=== PATIENT | female | born 1950 | race Asian ===

== ENCOUNTER 2018-03-19 09:27 | Inpatient (IN) | payer MEDICARE ==
[~2018-03-19] VITALS: Ht 170.2 cm; Wt 72.6 kg
[2018-03-19] VITALS (11 sets, daily range): BP systolic 111–157; BP diastolic 52–85
[~2018-03-19 09:27] MED LIST: ASPIR 8181 MG ORAL; ATORVASTATIN CA10 MG ORAL; GABAPENTIN600 MG ORAL
[2018-03-19] MEDS ORDERED: fentaNYL 100 mcg/2 mL IV ONE (10:40)
[2018-03-19] MEDS ORDERED: Midazolam 2mg/2ml Inj ONE (10:40)
[2018-03-19] MEDS ORDERED: Sodium Chloride 10ml vial INJ ONE (10:41)
[2018-03-19] MEDS ORDERED: Propofol 200mg/20ml IV ONE ×4 (10:41→15:26)
[2018-03-19] MEDS ORDERED: Lidocaine 1% MPF 10mg/ml 5ml ONE (10:41)
[2018-03-19] MEDS ORDERED: Succinylcholine 20mg/ml 10ml vial ONE (10:48)
[2018-03-19] MEDS ORDERED: EPINEPHrine 1mg/1ml Amp ONE (10:52)
[2018-03-19] MEDS ORDERED: Thrombin 5000 units TOPIC ONE (10:52)
[2018-03-19] MEDS ORDERED: Bupivacaine 0.5% Inj 30 ml vial INJ ONE (10:53)
[2018-03-19] MEDS ORDERED: LORazepam Inj 2mg/ml 1ml IV PRN (11:00)
[2018-03-19] MEDS ORDERED: LR 1000ml 1,000 ML IVLG SCH (11:00)
[2018-03-19] MEDS ORDERED: DiphenhydrAMINE 50mg/ml Inj IVP PRN (11:00)
[2018-03-19] MEDS ORDERED: Meperidine 50mg/ml Inj(FOR RIGORS ONLY) IVP PRN (11:00)
[2018-03-19] MEDS ORDERED: Bacitracin 50000 Units Vial ONE (11:07)
--- NOTE | 2018-03-19 11:09 | Anethesia Preoperative Eval ---
Anesthesia Pre-op PMH/ROS General Date of Evaluation: Mar 19, 2018 Time of Evaluation: 10:40 Anesthesiologist: Gen ASA Score: ASA 2 Mallampati Score Class I : Soft palate, uvula, fauces, pillars visible Class II: Soft palate, uvula, fauces visible Class III: Soft palate, base of uvula visible Class IV: Only hard plate visible Mallampati Classification: Class II Surgeon: Radha Diagnosis: Cervical disc herniation Surgical Procedure: ACDF C4-5, C5-6 Family History: no anesthesia problems Allergies: Coded Allergies: No Known Allergies (Unverified , 03/18/18) Medications: see eMAR Past Medical History Cardiovascular: Denies: HTN, CAD, UT, valve dz, arrhythmia, other Pulmonary: Denies: asthma, COPD, TRESSA, other Gastrointestinal/Genitourinary: Denies: GERD, CRI, ESRD, other Neurologic/Psychiatric: Denies: dementia, CVA, depression/anxiety, TIA, other Endocrine: Denies: DM, hypothyroidism, steroids, other HEENT: Denies: cataract (L), cataract (R), glaucoma, LOWER ELWHA (L), LOWER ELWHA (R), other Hematology/Immune: Denies: anemia, DVT, bleeding disorder, other Musculoskeletal/Integumentary: Denies: OA, RA, DJD, DDD, edema, other PMH Narrative: Hypercholesterolemia PSxH Narrative: Posterior cervical fusion Anesthesia Pre-op Phys. Exam Physician Exam Last Vital Signs Date Time Temp Pulse Resp B/P (MAP) Pulse Ox O2 Delivery O2 Flow Rate FiO2 03/19/18 10:37 97.1 71 20 157/82 99 Room Air 97.1 Constitutional: NAD Neurologic: CN 2-12 intact Cardiovascular: RRR, no M/R/G Respiratory: CTA Gastrointestinal: S/NT/ND Airway Exam Mallampati Score: Class II MO: full ROM: full Teeth: other - Implants Anesthesia Pre-op A/P Labs WNL Studies Pre-op Studies: EKG - NSR Risk Assessment & Plan Assessment: Healthy female for ACDF Plan: GETA, [place] Status Change Before Surgery: No Pre-Antibiotics Drug: Ancef Given Within 1 Hr of Incision: Yes Jonny Blevins MD Mar 19, 2018 11:09
--- NOTE | 2018-03-19 11:09 | Immediate Post-Op Evaluation ---
Immediate Post-Op Evalulation Immediate Post-Op Evalulation Procedure: ACDF C4-5, C5-6 Date of Evaluation: Mar 19, 2018 Time of Evaluation: 16:35 IV Fluids: 1900 Estimated Blood Loss: 75 Urinary Output: 75 Blood Pressure Systolic: 130 Blood Pressure Diastolic: 70 Pulse Rate: 93 O2 Sat by Pulse Oximetry: 100 Temperature (Fahrenheit): 97.2 Pain Score (1-10): 0 Nausea: No Vomiting: No Complications No complication Patient Status: reacts, patent, extubated, none Hydration Status: adequate Drug: Ancef Given Within 1 Hr of Incision: Yes Time Given: 11:30 Jonny Blevins MD Mar 19, 2018 11:09
--- NOTE | 2018-03-19 11:19 | Pre-Procedure Note/Attestation ---
Pre-Procedure Note/Attestation Complete Prior to Procedure Procedure Narrative: ACDF C4/5, C5/6 possible C6/7 Indications for Procedure Pre-Operative Diagnosis: Cervical disk hernation Radicualpthy Attestation I attest that I discussed the nature of the procedure; its benefits; risks and complications; and alternatives (and the risks and benefits of such alternatives ), prior to the procedure, with the patient (or the patient's legal education courses sales representative). I attest that, if there was a reasonable possibility of needing a blood transfusion, the patient (or the patient's legal education courses sales representative) was given the [facility] standardized written summary, pursuant to the Jonny August Blood Safety Act ([place] Health and Safety Code # 1645, as amended). I attest that I re-evaluated the patient just prior to the surgery and that there has been no change in the patient's H&P, except as documented below: KATIE FREEMAN M.D. Mar 19, 2018 11:19
[2018-03-19] MEDS ORDERED: Naloxone 0.4mg/ml Inj ONE (16:17)
--- NOTE | 2018-03-19 16:26 | Brief Operative Note ---
Immediate Post Operative Note Operative Note Pre-op Diagnosis: Cervical disk hernation Radicualpthy Procedure: C5/6 and C6/7 ACDF Post-op Diagnosis: same as pre-op Findings: consistent w/pre-op dx studies Surgeon: Radha Anesthesiologist: Mary Anesthesia: general Specimen: none Complications: none Condition: stable Fluids: 1900 Estimated Blood Loss: minimal - 75cc Drains: none Packing: None Tourniquet time: 0 Implant(s) used?: Yes - Nuvasive Stand alone KATIE FREEMAN M.D. Mar 19, 2018 16:26
--- NOTE | 2018-03-19 16:59 | Diagnostic Imaging Report ---
Indication: Pain, intraoperative Technique: Intraoperative images Comparison: none Findings: Intraoperative images document a paper clip projected over C5 on the lateral view. Subsequent images document placement of anterior fusion hardware at C5-6 and C6-7 Impression: Intraoperative imaging, as described
[2018-03-19] MEDS ORDERED: Hydromorphone 0.5mg/0.5ml inj IVP PRN (18:45)
[2018-03-19] MEDS ORDERED: Norco 5mg/325mg tab ORAL PRN ×2 (19:30→23:00)
[2018-03-19] MEDS ORDERED: Chloraseptic Spray 20mL Bottle ORAL PRN (20:00)
[2018-03-19] MEDS: D5 1/2NS w/KCl 20mEq 1,000 ML IV SCH (21:04)
[2018-03-19] MEDS: Cephalexin 500mg cap ORAL SCH (21:04)
[2018-03-19] MEDS ORDERED: Tylenol #3 tab (300mg/30mg) ORAL PRN (23:00)
[2018-03-19] MEDS ORDERED: Milk of Magnesia 30ml Ud ORAL PRN (23:00)
[2018-03-19] MEDS ORDERED: ALPRAZolam 0.5mg tab ORAL PRN (23:00)
[2018-03-19] MEDS ORDERED: Tylenol #3 tab (300mg/30mg) ORAL SCH (23:15)
[2018-03-20 00:37] VITALS: BP 130/77
[2018-03-20] MEDS: Morphine Sulfate 4mg/ml Inj IM PRN ×3 (01:14→13:02)
--- NOTE | 2018-03-20 03:15 | Consultation ---
DATE OF CONSULTATION: 03/19/2018 CONSULTING PHYSICIAN: Rashawn Morgan M.D. REFERRING PHYSICIAN: Sisi Garcia M.D. REASON FOR CONSULTATION: Acute pain management. HISTORY OF PRESENT ILLNESS: Dear Dr. Garcia, Thank you kindly for consulting me to evaluate and render an opinion as to how to proceed in the management of the patient's acute postoperative cervical spine pain after cervical spine instrumentation surgery today. The patient is a 67-year-old woman, who underwent multiple level cervical spine fusion surgery with instrumentation today. She complained of significant discomfort and you consulted me for acute pain consultation. I saw the patient at the bedside with the nurse RN, Andrea. I performed detailed history and physical examination. I reviewed the medical record in detail including advanced directives. PAST MEDICAL HISTORY: 1. Acute postoperative cervical spine pain, status post multiple level cervical spine fusion surgery with instrumentation by Dr. Garcia in March 2018. 2. Elderly age. 3. Hypercholesterolemia. 4. Active tobacco usage. PAST SURGICAL HISTORY: 1. section. 2. Neck surgery. MEDICATIONS: At home, baby aspirin, Lipitor, and gabapentin 600 mg twice a day p.r.n. for pain. 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 She drinks two glasses of wine, 3 to 4 days a week. She currently smokes cigarettes and I counseled her to stop smoking. FAMILY HISTORY: Coronary artery disease. REVIEW OF SYSTEMS: Per attending physician. PHYSICAL EXAMINATION: VITAL SIGNS: Age 67, height 170 cm, weight 73 kilograms, body mass index 25. Vital signs, pain level 5/10 on the visual analog pain scale. Afebrile, pulse 84, respirations 18, blood pressure 128/85, and oxygen saturation 100% on supplemental oxygen. HEENT: Soft collar in place. Dressing appears clean and dry. Significant discomfort with range of motion. EXTREMITIES: Moving all extremities x4. A 5/5 dorsiflexion, bilateral lower extremities. 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 Generalized soreness and bilateral shoulder girdle. No Camara's palsy. No Shelley syndrome. CHEST: Clear to auscultation. HEART: Regular rate and rhythm. ABDOMEN: Soft. BREASTS: Deferred. GENITOURINARY: Deferred. Aguilar catheter in place. NEUROLOGIC: Detailed neurologic exam per Dr. Garcia. LABORATORY AND DIAGNOSTIC DATA: Diagnostic testing shows a 12-lead EKG with normal sinus rhythm, ventricular rate 70. Laboratory studies from March 14, 2018 shows glucose 103, BUN 15, creatinine 0.7. Sodium 142, potassium 4.0, chloride 106, bicarbonate 23, and calcium 9.3. PTT 26, INR 0.9. Hepatitis A, B, C all negative. White count 6, hematocrit 46, and platelets 220. Urinalysis negative. Total protein 6.8. AST 34, ALT 60, alkaline phosphatase 119, and total bilirubin 0.4. Sodium 142, potassium 4.0, chloride 106, bicarbonate 23, BUN 15, and creatinine 0.6. IMPRESSION: 1. Acute postoperative cervical spine pain, status post multiple level cervical spine fusion surgery with instrumentation by Dr. Garcia in March 2018. 2. Elderly age. 3. Hypercholesterolemia. 4. Active tobacco usage. TREATMENT AND RECOMMENDATIONS: I have asked the nurse to place Chloraseptic spray at the bedside to help with sore throat complaints. I took a detailed medical history from the patient including pain medication usage in the past. She has been using gabapentin 600 mg once or twice per day. This dose has been affective. She also states that she has tolerated morphine in the past. I will add morphine 3 mg intramuscularly every three hours p.r.n. for severe breakthrough pain. The patient does drink 2 glasses of wine every other night. I will add a dose of Xanax 0.5 mg q.6 hours p.r.n. for anxiety or insomnia. The patient has tolerated Xanax in the past as well without adverse side effects. I will start her on Tylenol No. 3 with Codeine for mild pain. If this is unsatisfactory, I will order [place] 5/325 one tablet orally every three hours p.r.n. for moderate pain. I will empirically place the patient on Protonix 40 mg nightly for GI ulcer prophylaxis. I have also ordered p.r.n. dose of Mylanta 30 mL q.6 hours in case of any GERD symptom exacerbation. I have ordered a dose of Zofran 4 mg intravenously every four hours p.r.n. as a first-line antiemetic agent. I will place the patient on milk of magnesia as a rescue laxative and I have added p.r.n. dose of Catapres 0.1 mg in case of any hypertensive issues with systolic blood pressure greater than 160 mmHg. I have ordered Benadryl 20 mg q.6 hours in case of any itching complaints. The patient's smoking history, I have ordered p.r.n. dose of a nicotine patch in case nicotine withdrawal agitation is worsening symptoms. Rashawn Morgan M.D. DR: CASA JOB#: [id number] CC:
[2018-03-20 04:00] VITALS: BP 143/79
[2018-03-20] MEDS: D5 1/2NS w/KCl 20mEq 1,000 ML IV SCH ×3 (05:29→17:54)
[2018-03-20] MEDS: Cephalexin 500mg cap ORAL SCH ×4 (08:21→21:44)
--- NOTE | 2018-03-20 09:36 | 48 Hour Post Anesthesia Eval ---
Post Anesthesia Evaluation Procedure: ACDF C4-5, C5-6 Date of Evaluation: Mar 20, 2018 Time of Evaluation: 09:34 Blood Pressure Systolic: 136 0: 72 Pulse Rate: 64 Respiratory Rate: 22 Temperature (Fahrenheit): 97.5 O2 Sat by Pulse Oximetry: 98 Airway: patent Nausea: No Vomiting: No Pain Intensity: 3 Hydration Status: adequate Cardiopulmonary Status: stable Mental Status/LOC: patient returned to baseline Follow-up Care/Observations: n/a Post-Anesthesia Complications: none Follow-up care needed: N/A Joseph Beaulieu MD Mar 20, 2018 09:36
[2018-03-20] MEDS ORDERED: LR 1000ml ONE (11:00)
[2018-03-20] MEDS ORDERED: Sterile Water Irrig 1000ml IRRIG ONE (11:00)
[2018-03-20] MEDS ORDERED: NS Irrig 1000ml ONE (11:00)
[2018-03-20 11:45] VITALS: BP 139/75
[2018-03-20] MEDS ORDERED: Heparin 5000 units/ml inj SUBQ SCH (14:00)
--- NOTE | 2018-03-20 14:05 | General Surgery Progress Note ---
General Surgery-Progress Note Subjective Day of Surgery: 03/19/2018 Procedure Performed C5/6 and C6/7 ACDF Symptoms: improved Objective Last 24 Hour Vital Signs Date Time Temp Pulse Resp B/P (MAP) Pulse Ox O2 Delivery O2 Flow Rate FiO2 03/20/18 11:45 97.7 79 18 139/75 97 97.7 03/20/18 09:36 207.5 64 22 98 03/20/18 04:00 Nasal Cannula 3.0 03/20/18 04:00 98.9 82 20 143/79 98 98.9 03/20/18 00:37 98.8 79 17 130/77 100 98.8 03/20/18 00:00 Nasal Cannula 3.0 03/19/18 20:00 98.9 84 18 128/85 100 98.9 03/19/18 20:00 Nasal Cannula 3.0 03/19/18 18:00 97.8 81 15 111/52 98 Nasal Cannula 3 97.8 03/19/18 17:45 81 14 118/60 100 Nasal Cannula 3 03/19/18 17:30 83 15 132/63 100 Nasal Cannula 3 03/19/18 17:15 82 19 151/79 100 Nasal Cannula 3 03/19/18 17:00 86 19 151/79 100 Simple Mask 6 03/19/18 16:48 97.2 03/19/18 16:48 85 13 151/79 100 Simple Mask 6 03/19/18 16:35 88 17 144/77 100 Simple Mask 6 03/19/18 16:33 207.0 93 100 03/19/18 16:30 94 21 133/80 100 Simple Mask 6 03/19/18 16:25 97.2 93 18 130/70 100 Simple Mask 6 97.2 I&O Intake and Output 03/19/18 03/20/18 19:00 07:00 Intake Total 2000 ml 360 ml Output Total 450 ml 1400 ml Balance 1550 ml -1040 ml Intake Oral 360 ml IV Total 2000 ml Output Urine Total 375 ml 1400 ml Estimated Blood Loss 75 ml # Voids 2 Dressing: dry Wound: clean Drains: none Assessment Post-op Diagnosis s/p 2 level ACDF. PT/OT Plan Additional Comments Doing well with resolution of her radiculapathy. Cont abx Cont pain mgt. Advance diet KATIE FREEMAN M.D. Mar 20, 2018 14:05
--- NOTE | 2018-03-20 16:37 | Diagnostic Imaging Report ---
Indication: Pain, status post cervical spine surgery on the previous day Technique: 3 views of the cervical spine Comparison: none Findings: Anterior fusion hardware is seen bridging C5-6 and C6-7. Bony alignment is normal. The bones are diffusely demineralized. No acute fractures. No dislocations. Gas within the soft tissues most likely reflect reflects retained air from the surgical exposure. Impression: Postsurgical changes, as described No evidence of acute bony trauma
[2018-03-20 16:56] LABS: HEMATOCRIT 45.1 % (37.0-47.0); HEMOGLOBIN 15.2 G/DL (12.0-16.0); MEAN CORPUSCULAR VOLUME 91 FL (80-99); PLATELET COUNT 195 K/UL (150-450); RED BLOOD COUNT 4.93 M/UL (4.20-5.40); RED CELL DISTRIBUTION WIDTH 10.9 % (11.6-14.8); WHITE BLOOD COUNT 11.2 K/UL (4.8-10.8)
[2018-03-20] MEDS ORDERED: TransDerm Scop 1mg/72HR Patch TDERMAL ONE (18:00)
[2018-03-20 20:00] VITALS: BP 146/83
[2018-03-20] MEDS: Heparin 5000 units/ml inj SUBQ SCH (21:46)
--- NOTE | 2018-03-20 22:15 | Progress Note ---
DATE: 03/20/2018 ACUTE PAIN MANAGEMENT PHYSICIAN PROGRESS NOTE MEDICATIONS: Medication administration record reviewed. Medications include IV fluids, subcutaneous heparin, Protonix, Keflex. As needed medications include Tylenol, Chloraseptic, [place], Tylenol No. 3 with Codeine, Fioricet, Xanax, Benadryl, Zofran, morphine, milk of magnesia, Mylanta, Benadryl, Catapres, Neurontin, nicotine patch. LABORATORY STUDIES: CBC from this morning is pending. PHYSICAL EXAMINATION: VITAL SIGNS: Afebrile, pulse 79, respirations 18, blood pressure 139/75, and oxygen saturation 97% on supplemental oxygen. I saw the patient at the bedside with her and the nurse RN, Lana. I spoke with the surgeon, Dr. Garcia. The patient has been having persistent nausea throughout the day. After extensive questioning, the patient and her , seems most likely that the patient is going through significant withdrawal from caffeine and cigarettes. The patient smokes 3/4 of a pack of cigarettes daily for 30 years and also drinks 4 to 5 cups of coffee daily. The patient did not have any complaints of nausea last night. The timing of her nausea symptoms and generalized malaise, inconsistent with nicotine withdrawal agitation. She is speaking, phonating, swallowing, and breathing within normal limits after her neck fusion surgery. The surgeon evaluated the patient earlier this afternoon and was pleased with the appearance of her neck, cervical spine wound. The patient has been able to ambulate in and out of bed to the restroom. I spoke with the hospital pharmacist, Ismael. I will place a scopolamine patch since the patient denies any glaucoma symptoms. I have also asked the nursing team to dose her with intramuscular Phenergan 12.5 mg x1 now, to be continued every 8 hours p.r.n. for refractory nausea. I have asked the nurse to place nicotine patch 21 mg. I will dose the patient with Fioricet one-hour after the Phenergan dosing, to help with her caffeine withdrawal agitation. I have also asked the nurse to return the patient back to clear liquids since she has no appetite for more solid food. She will continue on IV fluids and I will increase the rate of her IV fluids to 125 mL an hour for better hydration. I would recommend trialing Xanax. The patient did trial the Tylenol No. 3 with Codeine along with [place] overnight. These do not seem to be the culprit for nausea. In addition, the patient does not believe that the Keflex antibiotics have been causing her nausea. So, I will continue the p.r.n. [place] and Keflex. I will discontinue the Tylenol with Codeine since the [place] is more potent and seemed to be well tolerated. The patient will need a prescription at the time of discharge for appropriate pain medication. The surgeon, Dr. Garcia has placed the patient on q.12 hours dose subcutaneous heparin for DVT prophylaxis. An incentive spirometer to the bedside to encourage good pulmonary toilet in this smoking patient. I will continue the patient on Protonix for GI ulcer prophylaxis along with Mylanta in case of any GERD symptom exacerbation. An intramuscular morphine will remain for breakthrough pain medication for severe pain episodes. We will see how the patient's nausea and pain symptoms proceed in the next 12 hours, hoping that the patient is able to discharge to home tomorrow if her nausea symptoms resolve and her generalized affect improves. We may trial oral Xanax this evening. The patient does drink two glasses of wine every other night so Xanax should be well tolerated. Rashawn Morgan M.D. DR: Pamela JOB#: [id number] CC:
[2018-03-21] VITALS: BP 139/80
[2018-03-21] MEDS: D5 1/2NS w/KCl 20mEq 1,000 ML IV SCH (01:52)
[2018-03-21 04:00] VITALS: BP 142/81
[2018-03-21] MEDS: Cephalexin 500mg cap ORAL SCH (08:55)
[2018-03-21] MEDS: Heparin 5000 units/ml inj SUBQ SCH (08:57)
[2018-03-21] MEDS ORDERED: CEPHALEXIN500 MG ORAL (13:03)
--- NOTE | 2018-03-21 16:00 | Progress Note ---
DATE: 03/21/2018 ACUTE PAIN MANAGEMENT PHYSICIAN PROGRESS NOTE MEDICATIONS: Medication administration record reviewed. Medications include Chloraseptic spray, Protonix, Zofran, nicotine patch, morphine, milk of magnesia, [employer] [place] [place], subcutaneous heparin, Neurontin, Benadryl, Catapres, Keflex, Xanax, Mylanta, and Tylenol. LABORATORY STUDIES: No interval laboratory studies. OBJECTIVE: VITAL SIGNS: Pain level is 4/10 on the visual analog pain scale. Afebrile, pulse 90, respirations 17, blood pressure 142/81, and oxygen saturation 97% on room air. I saw the patient at the bedside. I discussed the case with the surgeon, Dr. Garcia. An [place] collar was delivered to the bedside. The patient also has a soft neck collar. I have asked the surgeon to clarify the usage parameters for the soft collar versus the [place] collar. The patient is sitting comfortably in the bed. After application of the scopolamine patch and the nicotine patch, along with dosing with Fioricet and caffeinated coffee, the patient is feeling much improved today. She still has a sore throat, but is able to hold-down liquids so, will be able to hydrate herself adequately. She will continue to slowly advance her diet as tolerated. Her will assist at home with activities of daily living. The patient is able to ambulate independently out of bed to the restroom. The patient denies any shortness of breath or chest pain. We will continue the Chloraseptic spray. I offered prescription narcotics for outpatient usage. The patient preferred to use [id number] Tylenol. I did suggest that she wait a few more days before resuming her baby aspirin. She also has a Neurontin available at home if she needs. At this time, I see no contraindication for a discharge trial home. Per the surgeon, I will leave a prescription for 4 more days of Keflex 500 mg 4 times a day. Rashawn Morgan M.D. DR: KERMIT JOB#: [id number] CC:
--- NOTE | 2018-03-21 17:45 | Discharge Summary ---
DATE OF ADMISSION: 03/19/2018 DATE OF DISCHARGE: 03/21/2018 ADMITTING PHYSICIAN/SURGEON: Sisi Garcia M.D. CONSULTING PHYSICIAN: Rashawn Morgan M.D., Pain Management. HOSPITAL COURSE: The patient was admitted for elective cervical spine surgery on 03/19/2018. Dr. Garcia performed the surgery, which went without any complications. The patient was transferred from the operating room to the recovery room without incident. The patient did well and was transferred to the orthopedic floor unit without incident. The patient had serial monitoring of vital and neurologic signs for 48 hours. Postoperative laboratory studies were within normal limits. The patient advanced her diet and physical therapy training. She was discharged home to the care of her without any adverse events. Rashawn Morgan M.D. DR: KERMIT JOB#: [id number] CC:
--- NOTE | 2018-03-22 00:45 | Discharge Summary ---
DATE OF ADMISSION: 03/19/2018 DATE OF DISCHARGE: 03/21/2018 ADDENDUM TO JOB #[id number] ADMITTING DIAGNOSIS: Cervical disc herniation. POSTOPERATIVE DIAGNOSIS: Cervical disc herniation. Rashawn Morgan M.D. DR: ZAYNAB JOB#: [id number] CC:
--- NOTE | 2018-03-23 04:45 | Operative Note - Dictated ---
DATE OF OPERATION: 03/19/2018 NOTE: POOR AUDIO PREOPERATIVE DIAGNOSES: 1. Cervical radiculopathy. 2. Cervical spine stenosis. 3. Cervical spondylosis. 4. Neck pain. 5. Bilateral arm pain. 6. Bilateral foraminal stenosis. POSTOPERATIVE DIAGNOSES: 1. Cervical radiculopathy. 2. Cervical spine stenosis. 3. Cervical spondylosis. 4. Neck pain. 5. Bilateral arm pain. 6. Bilateral foraminal stenosis. OPERATIVE TITLE: 1. C6-C7 anterior cervical diskectomy and fusion. 2. C5-C6 anterior cervical diskectomy and fusion. 3. C5-C6 arthrodesis. 4. C6-C7 arthrodesis. 5. Insertion of prothesis at C6-C7. 6. Insertion of prothesis at C5-C6. 7. C5-C6 foraminotomy. 8. C6-C7 foraminotomy. 9. Interpretation of intraoperative MRI. 10. Interpretation of nerve conduction study intraoperatively. 11. Use of operative microscope. 12. Interpretation of fluoroscopy intraoperatively. ANESTHESIA: General endotracheal intubation. ANESTHESIOLOGIST: Jonny Blevins M.D. ATTENDING SURGEON: Sisi Garcia M.D. INDICATION FOR SURGERY: The patient is a 67-year-old woman who presented with bilateral upper extremity radiculopathy in the C6-C7 distribution. She was found to have cervical stenosis and disk herniation as well as foraminal stenosis at the C6-C7 level. The patient with significant amount of the pain that was interfering with activity of daily living. Given the patient's symptoms and MRI findings, discussion was had with the patient with regard to doing anterior cervical diskectomy and fusion at these two levels for management of pain. The risks and benefits of the operation including, but not limited to infection, bleeding, CSF leak, weakness, numbness, hardware failure, injury to esophagus, injury to trachea, hoarseness, dysphagia, stroke, coma, and were explained to the patient. She understood and wished to proceed. DESCRIPTION OF PROCEDURE: The patient was brought into the operation room where she was laid in the supine position. A roll of fluff was placed under the patient 's shoulder to provide extension of the neck. All the pressure points were evaluated to make sure that they were well protected. We proceeded then to a cross table approach to plan the appropriate horizontal incision, from the midline from the medial edge of the sternocleidomastoid muscle on the right . The area was then prepped and draped in the usual sterile fashion. Once time-out had been done and the patient had been given antibiotic, proceeded to make an incision going through the skin and subcutaneous tissue with a 15 blade. Next, muscle, which was then ultimately sharply divided and any bleeders from the edges were bipolar cautery. A Weitlaner retractor was brought to keep the edges apart and medial border of the sternocleidomastoid muscle was then identified and using a blunt dissection, proceeded to go down the plane between that and the medial strap muscle as well as the esophagus and also identifying the contents of the . I proceeded then to go down and identify the spinal column using a Kittner then to clear the midline raphe identifying the longus coli bilaterally. A spinal needle was then used to insert into what we felt was the C5-C6 disk space and at that point proceeded to bring a fluoroscope to determine levels, which indicated that it was C5-C6. At this point, I had Trevon retractors back in again and monopolar Bovie was used to undermine the longus colli muscle bilaterally, and a Shadow-Line retractor system was then placed and anchored underneath longus coli at this level. Once this had been done, we proceeded to bring in the pins and proceeded to impact and put the pin inside the C5 vertebral body and C6 vertebral body, and retractors were placed over this pins and the disk space was then distracted, again we brought fluoroscope at this point to gauge the level of pins. At this point, an 11-blade was used then to incise into the disk space and a combination of Kerrison curette that were used to start taking out the disk from the disk space until we encountered the posterior disk osteophyte complex. At this point, a drill was used to drill down the posterior osteophyte until we encountered the posterior longitudinal ligament between the posterior longitudinal ligament and the dura, and a Kerrison 1 was placed to open this up. Next, a Kerrison 2 was used then to further remove the posterior longitudinal ligament as well as some components of the posterior osteophyte-disk osteophyte complex as well. Once the whole area had been cleared, attention was placed to the lateral aspect resecting the foramen bilaterally and Kerrison was used to open up the foramen to make sure that the edge of the this was done on both the left and the right. Next, I proceeded then to use to follow to make sure that the foramen was well decompressed. Once this had been done, we then proceeded to achieve with a combination of Gelfoam and Surgiflo and once we had achieved hemostasis, we proceeded then to use the drill to flatten the end-plates to make sure that they were well structured and using an invasive system, appeared to be a trial, which was a 6 trial . We proceeded then to to make sure that it was well positioned and , which was removed. Next, the appropriate sized 6 interbody prosthetic was filled with DBM and this was then impacted into space again using fluoro to our positioning. Next, was used then to insert into the hole of the screw and a new hole was done. done to check the trajectory as well as the length and the appropriate screw was then used to placing one screw going up and two going in the downward direction. At this point then, another fluoro was done to check our position to make sure that we were well positioned. Next, we removed the [place] pin and placed it into C6 and C7 level again going and repeating the same process as we did at C5-C6 level. This was repeated at C6-C7 level again distracting the initially and curette, Kerrison insertion to remove complex again at this level, a drill was used to thin it out and was insinuated between the posterior longitudinal ligament and the dura, and this was also removed to achieve decompression of the dura. The nerve root was also followed. At this level, on both sides using a Kerrison to take out some bone to make sure that the level was free and the foramen was wide open achieve at this point and advanced a 6 NuVasive stand-alone system was also used the direction and trajectory as well . Once we were done with that, the Shadow-Line retractors were removed. Bone wax was used to seal the hole created by the [place] pins, and hand-held retractors were brought in. The area was copiously irrigated and bleeding readily identified. We then coagulated judiciously until we achieved good hemostasis. At this point, then we the platysma muscle using a 2-0 Vicryl suture in a simple running fashion. Next, the subcutaneous tissue was approximated using inverted interrupted simple stitches using 3-0 Vicryl sutures and the skin was approximated using 4-0 Monocryl suture using subcuticular technique and the wound was with Dermabond and once the wound was overlaid with Dermabond, a wet-to-dry Telfa and Tegaderm was placed over it. At this point, once the patient was then extubated, prior to closure, we proceeded to get an AP and lateral x-ray of the C-spine to check all the position of prosthesis. Throughout the operation, we monitored the patient's nerve conduction studies, the amplitude, and EMG studies, there was indication amplitude of the waveform towards the end of the operation. At this point, the patient was woken up and taken to the recovery room awake and following commands with all four extremities. There were no complications to the procedure. Disk material was sent pathology. The loss of blood was about 75 mL. Sisi Garcia M.D. DR: Arline JOB#: [id number] CC:
== END 2018-03-21 13:22 | disposition home or self-care (01) | DRG 473 ==
LOC: SDSOVERFLO 09:27 → 3E 22:04
PROC: 4A11X4G Monitoring of Peripheral Nervous Electrical Activity, Intraoperative, External Approach (ICD-10-PCS; principal; 2018-03-19 11:00)
PROC: 0RG20A0 Fusion of 2 or more Cervical Vertebral Joints with Interbody Fusion Device, Anterior Approach, Anterior Column, Open Approach (ICD-10-PCS; principal; 2018-03-19 11:00)
PROC: 0RT30ZZ Resection of Cervical Vertebral Disc, Open Approach (ICD-10-PCS; principal; 2018-03-19 11:00)
DX: M50.122 Cervical disc disorder at C5-C6 level with radiculopathy (principal); M48.02 Spinal stenosis, cervical region; M47.892 Other spondylosis, cervical region; R73.03 Prediabetes; E78.5 Hyperlipidemia, unspecified; I25.10 Atherosclerotic heart disease of native coronary artery without angina pectoris; Z72.0 Tobacco use; G89.18 Other acute postprocedural pain
CPT/HCPCS: 36415; 72040; 76001; 85007; 85025; 86850; 86900; 86901; 87081; 94003; 94150; J2250; J2405